=== PATIENT | female | born 1960 | race Caucasian/White ===

== ENCOUNTER 2021-02-25 19:45 | Emergency (ER) | payer MEDICARE, MEDICAID ==
[~2021-02-25] VITALS: Ht 154.9 cm; Wt 57.2 kg
--- NOTE | 2021-02-25 19:50 | NUR ---
PT BIBSELF C/O HEADACHE AND L SIDE HEMATOMA. ALSO C/O R SIDED CHEST WALL PAIN WITH R BREAST HEMATOMA S/P GLF X3 DAYS AGO. PT DENIES KO. PT AAOX4. AMBULATORY WITH STEADY GAIT. VITAL SIGNS STABLE. RESPIRATIONS EVEN AND UNLABORED. NO ACUTE DISTRESS NOTED AT THIS TIME. WILL CONTINUE TO MONITOR
--- NOTE | 2021-02-25 20:56 | NUR ---
RADIOLOGY AT BEDSIDE FOR XRAY
--- NOTE | 2021-02-25 21:00 | NUR ---
[facility]
[2021-02-25] MEDS ORDERED: IBUP-1955 PO (21:33)
[2021-02-25 21:41] VITALS: BP 134/67
--- NOTE | 2021-02-25 21:41 | NUR ---
Patient discharged to home in stable condition. Written and verbal after care instructions given. Patient verbalizes understanding of instruction. ambulatory with a steady gait noted. pt aaox4 no acute distress noted, resp even and unlabored.
== END 2021-02-25 21:42 | disposition home or self-care (01) ==
LOC: ER 19:49
DX: S00.03XA Contusion of scalp, initial encounter (principal); S20.211A Contusion of right front wall of thorax, initial encounter; E11.9 Type 2 diabetes mellitus without complications; Z90.49 Acquired absence of other specified parts of digestive tract; Z98.890 Other specified postprocedural states; W19.XXXA Unspecified fall, initial encounter; Y93.89 Activity, other specified; Y92.89 Other specified places as the place of occurrence of the external cause; Y99.8 Other external cause status
CPT/HCPCS: 70450-TC; 71100-TC